=== PATIENT | female | born 1990 | race Two or more races ===

== ENCOUNTER 2017-02-08 03:20 | Emergency (ER) | payer OTHER ==
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
[2017-02-08 07:55] VITALS: BP 103/54
== END 2017-02-08 08:00 | disposition home or self-care (01) ==
LOC: ER 03:20
DX: S89.92XA Unspecified injury of left lower leg, initial encounter (principal); W45.8XXA Other foreign body or object entering through skin, initial encounter
CPT/HCPCS: 99283